=== PATIENT | male | born 1975 | race Caucasian/White ===

== ENCOUNTER 2025-04-25 11:41 | Outpatient (CLI) | payer BC, SELFPAY ==
--- NOTE | 2025-04-25 11:47 | XR_ITS ---
FINAL REPORT CLINICAL HISTORY: Abdominal pain left sided x6 months COMPARISON: None FINDINGS: A single view of the abdomen was obtained. The visualized intestinal gas pattern appears unremarkable without evidence to suggest obstruction. No abnormal radiopacities are seen in the abdomen. IMPRESSION: No acute findings. Reviewed, Interpreted and Dictated by Lena Honeycutt MD Transcribed by Phuong Ghotra Authenticated and [facility]
--- OUTSIDE RECORDS SUMMARY | 2025-04-25 11:47 | XMS_ITS | Encounter Summary ---
Author Organization [facility] Practices Address [address] [place] [address] Care Team Providers Care Cigar Packer And Sorter Name Role Phone Flynn Tian MD Primary Care Provider [phone] Encounter Details Date Type Department Care Team (Late st Contact Info) Description 12/11/2024 Telephone [facility] [address] [place] [address] Flynn Tian MD [address] [place] [address] Social History Tobacco Use Types Packs/Day Years Used Date Smoking Tobacco: Never Smokeless Tobacco: Never Alcohol Use Standard Drinks/Week Comments Never 0 (1 standard drink = 0.6 oz pur e alcohol) Core Social Determinants of Health Screening Que stions Answer Date Recorded Unable to Pay for Housing in the Last Year Not o n file 04/25/2023 [address] of Places Lived in the Last Year Not on f ile 04/25/2023 Unstable Housing in the Last Year Not on file 04/25/2023 Sex and Gender Information Value Date Recorded Sex Assigned at Not on file Legal Sex Male 7:52 PM PDT Gender Identity Not on file Sexual Orientation Not on file documented as of this encounter Plan of Treatment Not on file documented as of this encounter Visit Diagnoses Not on filedocumented in this encounter Care Teams Cigar Packer And Sorter Relationship Specialty Start Date End Date Flynn Tian MD [address] [place] [id number] PCP - General Family Medicine 04/29/21 documented as of this encounter
--- OUTSIDE RECORDS SUMMARY | 2025-04-25 11:47 | XMS_ITS | Clinical Summary ---
Author Organization [facility] and [facility] Address [address] [place] [address] Care Team Providers Care Peripheral Edp Equipment Operator Name Role Phone Flynn Tian MD Primary Care Provider [phone] Source Comments This information has been disclosed to you from records protected by Federal confidentiality rules (42 CFR part 2). The Federal rules prohibit you from making any further disclosure of this information unless further disclosure is expressly permitted by the written consent of the person to whom it pertains or as otherwise permitted by 42 CFR part 2. A general authorization for the release of medical or other information is NOT sufficient for this purpose. The Federal rules restrict any use of the information to criminally investigate or prosecute any alcohol or drug abuse patient.[facility] Allergies No known active allergies Medications escitalopram (LEXAPRO) 10mg Tab 1 tablet Active rosuvastatin (CRESTOR) 10mg Tab TAKE ONE TABLET BY MOUTH AT BEDTIME (GENERIC FOR CRESTOR) 30 Tab 3 12/21/2024 Active Active Problems Problem Noted Date Diagnosed Date Cough 07/28/2022 Acute right-sided low back pain without sciatica 03/31/2022 Anxiety 10/29/2009 Hyperlipidemia 10/16/2009 Encounters Date Type Department Care Team Description 01/24/2025 Results Follow-Up [facility] [address] [place] [phone] Flynn Tian MD COMPREHENSIVE METABOLIC PANEL W GFR, CBC WITHOUT DIFFERENTIAL, LIPID PROFILE from Last 3 Months Family History Medical History Relation Comments Hyperlipidemia Father Heart Disease Mother Relation Status Comments Father Alive Mother Alive Social History Tobacco Use Types Packs/Day Years Used Date Smoking Tobacco: Never Smokeless Tobacco: Never Tobacco Cessation:Counseling Given: Not Answered Alcohol Use Standard Drinks/Week Comments Never 0 [...] on file Sexual Orientation Not on file Last Filed Vital Signs Vital Sign Reading Time Taken Comments Blood Pressure 125/76 12/21/2024 3:31 PM PDT Pulse 77 12/21/2024 3:31 PM PDT Temperature 36.7 C (98 F) 12/21/2024 3:31 PM PDT Respiratory Rate 14 04/29/2021 5:23 PM PDT Oxygen Saturation 95% 04/29/2021 5:23 PM PDT Inhaled Oxygen Concentration - - Weight 78.6 kg (173 lb 3.2 oz) 12/21/2024 3:31 P M PDT Height 177.8 cm (5' 10 ) 12/21/2024 3:31 PM PDT Body Mass Index 24.85 12/21/2024 3:31 PM PDT Plan of Treatment Health Maintenance Due Date Last Done Comments UNIVERSAL HIV SCREENING 1995 DTaP,Tdap,or Td Vaccine (1 - Tdap) 1996 HEPATITIS B VACCINE (1 of 3 - 19+ 3-dose series) 1996 MMR VACCINE ADULT 1996 COLORECTAL CANCER SCREENING DISCUSSION 2022 COVID-19 Vaccine (4 - 2023-2 5 season) 2024 08/22/2021, 12/07/2020, 11/09/2020 INFLUENZA VACCINE 06/13/2025 08/12/2022 LIPID SCREENING 01/15/2026 01/15/2025, 08/10/2022 HEPATITIS C SCREENING Completed 08/31/2022 HEPATITIS A VACCINE Aged Out No longe r eligible based on patient's age to complete this topic HPV VACCINE (No Doses Required) Completed MENINGOCOCCAL ACWY VACCINE Aged Out N o longer eligible based on patient's age to complete this topic PNEUMOCOCCAL VACCINE 0-49 YEARS Aged Out No longer eligible b ased on patient's age to complete this topic Procedures Procedure Name Priority Date/Time Associated Diagnosis Comments LIPID PROFILE Routine 01/15/2025 7:46 AM PDT HEPATITIS ACUTE PANEL Routine 08/31/2022 8:05 AM PST Elevated LFTs from Last 3 Months or Most Recently Relevant to Health Maintenance Results * (ABNORMAL) LIPID PROFILE (01/15/2025 7:46 AM PDT) CHOLESTEROL, TOTAL 176 100 - 199 mg/dL 01/16/2025 6:11 AM PDT [facility] TRIGLYCERIDES 94 0 - 149 mg/dL 01/16/2025 5:59 AM PDT [facility] HDL CHOLESTEROL 41 >39 mg/dL 5 5:59 AM PDT [facility] VLDL Cholesterol Flavio 17 5 - 40 mg/dL 01/16/2025 6:11 AM PDT [facility] LDL Chol Calc ([facility]) 118(H) 0 - 99 mg/dL 01/16/2025 6:11 AM PDT [facility] LDL CALC COMMENT CANCELED 01/17/20 25 6:11 AM PDT [facility] Comment:Result canceled by t cyndy ancillary. 01/15/2025 7:46 AM PDT us Flynn Tian MD LAB CHEMISTRY Final Res [facility] [address] [place] [address] * HEPATITIS ACUTE PANEL (08/31/2022 8:05 AM PST) HEPATITIS A Ab IgM NON-REACTI VE NON-REACT BOO [facility] Comment: For additional information, please refer to http://[facility]/faq/RXQ749 (This link is being provided for informational/ educational purposes only.) HEPATITIS B SURFACE Ag NON-REACTI VE NON-REACT BOO [facility] HEP B CORE Ab, IgM NON-REACTI VE NON-REACT BOO [facility] HEPATITIS C Ab NON-REACTI VE NON-REACT BOO [facility] SIGNAL TO CUT-OFF 0.04 <1.00 [facility] Comment: HCV antibody was non-reactive. There is no laboratory evidence of HCV infection. In most cases, no further action is required. However, if recent HCV exposure is suspected, a test for HCV RNA (test code 33055) is suggested. For additional information please refer to http://[facility]/faq/VRN67i3 (This link is being provided for informational/ educational purposes only.) Blood 08/31/2022 8:05 AM PST 08/31/2022 8:05 AM PST Narrative [facility] - 09/01/2022 11:20 AM PST FASTING:YES FASTING: YES Dominique Varner NP LAB CHEMISTRY Final Result Performing Organization Address City/State/[facility] Co de Phone Number [facility] [address] [place] [address] [facility] [address] [place] [address] from Last 3 Months or Most Recently Relevant to Health Maintenance Insurance [facility] PPO BLUE [facility] [place] BLUE [facility] Care Teams Peripheral Edp Equipment Operator Relationship Specialty Start Date End Date Flynn Tian MD [address] [id number] PCP - General Family Medicine 04/29/21
--- OUTSIDE RECORDS SUMMARY | 2025-04-25 11:47 | XMS_ITS | Clinical Summary ---
Author Organization [facility], [facility], [facility], and Affiliates Address [address] [place] [address] Care Team Providers Care Soil And Plant Scientist Name Role Phone Jessica Galaviz MD Primary Care Provider [phone] Vesna Degroot MD Unavailable [phone] Allergies No known active allergies Medications celecoxib (CELEBREX) 200 mg capsule Take 1 capsule (200 mg total) by mouth Twice a day 6 capsule 04/28/20 21 Active HYDROcodone-ac etaminophen (NORCO) 5-325 mg tablet Take 1 tablet by mouth every 4 (four) hours as needed for Pain 5 tablet 04/28/20 21 Active ALPRAZolam (XANAX) 1 mg tablet Take 1 pill 1 hour before procedure to reduce anxiety 1 tablet 04/28/20 21 Active Additional Information Patient not taking.Reported on 02/15/2025 escitalopram oxalate (LEXAPRO) 10 mg tablet Active rosuvastatin (CRESTOR) 5 mg tablet 1 tablet (5 mg total) 06/11/20 20 Active hydrocortisone 2.5 % cream Apply topically in the morning. 10/20/19 24 Active sodium-potassi um,magnesium sulfates (SUPREP BOWEL PREP KIT) 17.5-3.13-1.6 gram liquidIndicati ons:Colon cancer screening Take 1st half at 6 PM the night before the procedure. Take the 2nd half 5-6 hours before your procedure on the morning of. Please follow [facility] colonoscopy instructions 1 kit 12/07/19 24 Active sodium-potassi um,magnesium sulfates (SUPREP BOWEL PREP KIT) 17.5-3.13-1.6 gram liquidIndicati ons:Colon cancer screening Take 1st half at 6 PM the night before the procedure. Take the 2nd half 5-6 hours before your procedure on the morning of. Please follow [facility] Gastroenterology colonoscopy instructions 1 kit 02/17/20 25 Active Active Problems Problem Noted Date Diagnosed Date Encounter for sterilization 04/27/2021 Anxiety 10/29/2009 Hyperlipidemia 10/16/2009 Cough variant asthma 05/13/2009 Encounters Date Type Department Care Team Description 04/23/2025 Results Follow-Up [facility] Encounter [address] [place] [address] Vesna Degroot MD 02/16/2025 7:30 AM PDT Video Visit [facility] Gastroenterology - A [facility] [address] [facility], [address] [place] [phone] Vesna Degroot MD Colon cancer screening (Primary Dx); Hepatic steatosis from Last 3 Months Social History Tobacco Use Types Packs/Day Years Used Date Smoking Tobacco: Never Alcohol Use Standard Drinks/Week Comments Not Currently 0 (1 standard drink = 0.6 oz pur e alcohol) Sex and Gender Information Value Date Recorded Sex Assigned at Not on file Legal Sex Male 7:32 PM PDT Gender Identity Not on file Sexual Orientation Not on file Last Filed Vital Signs Vital Sign Reading Time Taken Comments Blood Pressure - - Pulse - - Temperature - - Respiratory Rate - - Oxygen Saturation - - Inhaled Oxygen Concentration - - Weight 81.6 kg (180 lb) 02/15/2012 11:08 AM PDT Height 175.3 cm (5' 9 ) 02/15/2012 11:08 AM PDT Body Mass Index 26.58 02/15/2012 11:08 AM PDT Plan of Treatment Health Maintenance Due Date Last Done Comments Hepatitis B Routine Screening [address] Colonography 1995 HIV Routine Screening 1995 Hepatitis C Routine Screening 1995 Td Immunization 1995 Tdap Immunization 1995 Hepatitis B Vaccines (1 of 3 - 19+ 3-dose series) 1996 Pneumococcal Vaccine (0-49 y ears) (1 of 2 - PCV) 1996 Colorectal Screening FIT Annual 2022 Colorectal Screening FIT-DNA (Cologuard) 2022 Colorectal Screening Flex Sig 2022 Covid-19 Vaccine ( season) 2024 08/22/2021, 12/07/2020, 11/09/2020 Influenza Vaccines (#1) 2025 08/12/2022 Tobacco Screening 02/15/2026 02/15/2025 Zoster Vaccines (1 of 2) 2027 Colorectal Cancer Screening 04/17/2035 Colorectal Screening Colonoscopy 04/17/2035 04/17/20 25 Procedures Procedure Name Priority Date/Time Associated Diagnosis Comments COLONOSCOPY Routine 04/17/2025 9:28 AM PDT UPPER GI ENDOSCOPY Routine 04/17/2025 9: 09 AM PDT SURGICAL PATHOLOGY ([facility]) Routine 04/17/2025 12:00 AM PDT from Last 3 Months Results * Colonoscopy (04/17/2025 9:28 AM PDT) 04/17/2025 9:28 AM PDT [facility] ENDOSCOPY [facility] - 04/17/2025 9:48 AM PDT Patient: JR RODRIGUEZ : 1975 Account: [id number] Sex at : Male Age: 49 Years Procedure: Colonoscopy Date: 04/17/2025 Attending Physician: Vesna Degroot Referring MD: Jessica Galaviz MD Additional Staff: Cristel Driver; Dalila Bailey Indications: - Screening for colorectal malignant neoplasm Medications: - Propofol IV 600 mg Complications: - No immediate complications. Estimated blood loss: Minimal. Estimated Blood Loss: - Estimated blood loss was minimal. Procedure: - Prior to the procedure, a History and Physical was performed, and patient medications and allergies were reviewed. The patient's tolerance of previous anesthesia was also reviewed. The risks and benefits of the procedure and the sedation options and risks were discussed with the patient. All questions were answered, and informed consent was obtained. Prior Anticoagulants: The patient has taken no anticoagulant or antiplatelet agents. ASA Grade Assessment: II - A patient with mild systemic disease. After reviewing the risks and benefits, the patient was deemed in satisfactory condition to undergo the procedure. - Prior Aspirin/ NSAID therapy: The patient has taken no aspirin or NSAID medications. - The [id number] was introduced through the anus and advanced to the terminal ileum, with identification of the appendiceal orifice and ileocecal valve. - The scope was withdrawn and the mucosa was carefully examined. Retroflexion was performed in the rectum. - The colonoscopy was performed without difficulty. - The patient tolerated the procedure well. - The quality of the bowel preparation was good. - The terminal ileum, ileocecal valve, appendiceal orifice, and rectum were photographed. Findings: - A diminutive (1-3 mm) polyp was found in the cecum. The polyp was sessile. The polyp was removed with a cold biopsy forceps. Resection was complete, and retrieval was complete. - A diminutive (1-3 mm) polyp was found in the ascending colon. The polyp was sessile. The polyp was removed with a cold biopsy forceps. Resection was complete, and retrieval was complete. - The terminal ileum appeared normal. - A diminutive (1-3 mm) polyp was found in the sigmoid colon. The polyp was sessile. The polyp was removed with a cold biopsy forceps. Resection was complete, and retrieval was complete. - A few diverticula were found. - Internal hemorrhoids were found during retroflexion. - The exam was otherwise without abnormality on direct and retroflexion views. Impression: - One diminutive (1-3 mm) polyp in the cecum, removed with a cold biopsy forceps. Resected and retrieved. - One diminutive (1-3 mm) polyp in the ascending colon, removed with a cold biopsy forceps. Resected and retrieved. - The examined portion of the ileum was normal. - One diminutive (1-3 mm) polyp in the sigmoid colon, removed with a cold biopsy forceps. Resected and retrieved. - Diverticulosis. - Internal hemorrhoids. - The examination was otherwise normal on direct and retroflexion views. Recommendation: - Patient has a contact number available for emergencies. The signs and symptoms of potential delayed complications were discussed with the patient. Return to normal activities tomorrow. Written discharge instructions were provided to the patient. - Resume previous diet. - Continue present medications. - Await pathology results. - Repeat colonoscopy date to be determined after pending pathology results are reviewed for surveillance based on pathology results. - The patient has been assessed post procedure, they have recovered from anesthesia and they have met criteria for discharge from the center. Procedure Code(s): - 74261-11, Colonoscopy, flexible; with biopsy, single or multiple Diagnosis Code(s): - Z12.11, Encounter for screening for malignant neoplasm of colon - K63.5, Polyp of colon - K64.8, Other hemorrhoids - K57.30, Diverticulosis of large intestine without perforation or abscess without bleeding CPT(R) - 2023 copyright [employer]. All Rights Reserved. The CPT codes, CCI edits and ICD codes generated are intended as suggestions and were generated based on input data. These codes are preliminary and upon monotype keyboard operator review may be revised to meet current compliance and payer requirements. The provider is responsible for the final determination of appropriate codes, and modifiers. MD Vesna Kline This document has been electronically signed. Note Initiated:04/17/2025 Note Completed:04/17/2025 9:48 AM Vesna Degroot MD GI PROCEDURE ORDERABLES Leticia l Result ENDOSCOPY [facility] * Upper GI endoscopy (04/17/2025 9:09 AM PDT) 04/17/2025 9:09 AM PDT Impressions ENDOSCOPY [facility] - 04/17/2025 9:45 AM PDT Patient: JR RODRIGUEZ : 1975 Account: [id number] Sex at : Male Age: 49 Years Procedure: Upper GI endoscopy Date: 04/17/2025 Attending Physician: Vesna Degroot Referring MD: Jessica Galaviz MD Indications: - Abdominal pain Medications: - Propofol IV 200 mg - Propofol IV 600 mg Complications: - No immediate complications. Estimated Blood Loss: - Estimated blood loss: None. Procedure: - Prior to the procedure, a History and Physical was performed, and patient medications and allergies were reviewed. The patient's tolerance of previous anesthesia was also reviewed. The risks and benefits of the procedure and the sedation options and risks were discussed with the patient. All questions were answered, and informed consent was obtained. Prior Anticoagulants: The patient has taken no anticoagulant or antiplatelet agents. ASA Grade Assessment: II - A patient with mild systemic disease. After reviewing the risks and benefits, the patient was deemed in satisfactory condition to undergo the procedure. - Prior Aspirin/ NSAID therapy: The patient has taken no aspirin or NSAID medications. - The [id number] was introduced through the mouth and advanced to the second part of the duodenum. - The scope was withdrawn and the mucosa carefully examined. Retroflexion was performed in the stomach. - The upper GI endoscopy was accomplished without difficulty. - The patient tolerated the procedure well. Findings: - The examined esophagus was normal. - A small hiatal hernia was present. - Diffuse mildly erythematous mucosa was found in the gastric body and in the gastric antrum. Biopsies were taken with a cold forceps for histology. - The examined duodenum was normal. Biopsies were taken with a cold forceps for histology. Impression: - Normal esophagus. - Small hiatal hernia. - Erythematous mucosa in the gastric body and gastric antrum. Biopsied. - Normal examined duodenum. Biopsied. Recommendation: - The patient has been assessed post procedure, they have recovered from anesthesia and they have met criteria for discharge from the center. - Patient has a contact number available for emergencies. The signs and symptoms of potential delayed complications were discussed with the patient. Return to normal activities tomorrow. Written discharge instructions were provided to the patient. - Continue present medications. - Resume previous diet. - Await pathology results. Procedure Code(s): - 02707, Esophagogastroduodenoscopy, flexible, transoral; with biopsy, single or multiple Diagnosis Code(s): - R10.9, Unspecified abdominal pain - K44.9, Diaphragmatic hernia without obstruction or gangrene - K31.89, Other diseases of stomach and duodenum CPT(R) - 2023 copyright [employer]. All Rights Reserved. The CPT codes, CCI edits and ICD codes generated are intended as suggestions and were generated based on input data. These codes are preliminary and upon monotype keyboard operator review may be revised to meet current compliance and payer requirements. The provider is responsible for the final determination of appropriate codes, and modifiers. MD Vesna Kline This document has been electronically signed. Note Initiated:04/17/2025 Note Completed:04/17/2025 9:45 AM Vesna Degroot MD GI PROCEDURE ORDERABLES Leticia watt Result [facility] * Surgical Pathology (04/17/2025 12:00 AM PDT) 04/17/2025 04/18/2025 Impressions [facility] - 04/23/2025 10:40 AM PDT Patient Name: JR RODRIGUEZ Age-Sex-: 49y M 1975 Procedure Date: 04/17/2025 Accession Date: 04/18/2025 Pt Acct#: Report Date: 04/23/2025 Physician(s): VESNA DEGROOT MD* JESSICA GALAVIZ MD* P A T H O L O G Y R E P O R T DIAGNOSIS: 1. Duodenum, second portion biopsies: Duodenal mucosa without significant pathologic abnormality. No significant inflammation identified. Well formed villi present and no evidence for celiac sprue identified. 2. Stomach, body, antrum, biopsies: Antral and fundic type mucosa without significant pathologic abnormality. No significant inflammation or H. pylori identified. 3. Colon, ascending, polyp, polypectomy: Colonic mucosa with an intramucosal lymphoid aggregate. No polyp fish or malignancy identified. 4. Colon, cecum, polyp, polypectomy: Colonic mucosa without significant pathologic abnormality. No polyp tissue or malignancy identified. 5. Colon, sigmoid, polyp, polypectomy: Hyperplastic polyp. Caesar Souza M.D. electronically signed 04/23/2025 10:40 AM Gross Description: GROSS DESCRIPTION: Five parts are received in formalin labeled with the patient's name and date of . Part 1. Additionally labeled normal duodenum, second portion is a 0.8 cm in greatest dimension aggregate of multiple aleman, soft fragment(s) of tissue. Submitted in toto in 1A. Part 2. Additionally labeled stomach, body, antral erythema is a 0.8 cm in greatest dimension aggregate of multiple aleman, soft fragment(s) of tissue. Submitted in toto in 2A. Part 3. Additionally labeled right colon polyp 1 aleman, soft fragment(s) of tissue (0.4 cm in greatest dimension). Submitted in toto in 3A with level sections obtained. Part 4. Additionally labeled cecal polyp 3 aleman, soft fragment(s) of tissue (0.3, 0.2, 0.3 cm in greatest dimension). Submitted in toto in 4A with level sections obtained. Part 5. Additionally labeled sigmoid colon polyp 2 aleman, soft fragment(s) of tissue (0.4, 0.7 cm in greatest dimension). Submitted in toto in 5A with level sections obtained. (FK,[id number],[id number]) Clinical History: R10.9, K44.9, K31.89, Z12.11, K63.5, K64.8, K57.30 Unless specified otherwise above, the quality of the H and E and any other stains performed is satisfactory, and any internal or external positive and negative controls react appropriately. End of Report Technical services provided by [facility], [facility], d/b/a [facility], [address] [place] [address] , [place] [address] Preet Tom MD, Chilling Hood Operator. Case reviewed and diagnosis rendered at [facility], [address] [place] [id number] Abimael Hernandez Che, M.D., Chilling Hood Operator. CONFIDENTIAL us Vesna Degroot MD PATHOLOGY/CYTOLOGY ORDERABLE S Final Result [address] [address] from Last 3 Months Insurance [facility] Advance Directives Documents on File Type Date Recorded Patient Ship Pilot Expl anation Legal Document ([facility]) 03/20/2011 12:00 AM L egal Documents SCAN Care Teams Soil And Plant Scientist Relationship Specialty Start Date End Date Jessica Galaviz MD [address] [place] [address] PCP - General Family Medicine 04/28/21 Vesna Degroot MD [address] [facility] [address] [place] [address] Gastroenterology 02/09/25
--- OUTSIDE RECORDS SUMMARY | 2025-04-25 11:47 | XMS_ITS | Encounter Summary ---
Author Organization [facility] and [facility] Practices Address [address] [facility] [place] [address] Care Team Providers Care Packer Dried Beef Name Role Phone Flynn Tian MD Primary Care Provider [phone] Encounter Details Date Type Department Care Team (Late st Contact Info) Description 12/13/2024 Telephone [facility] [address] [place] [address] Flynn Tian MD [address] [place] [address] Social History Tobacco Use Types [...] on file documented as of this encounter Miscellaneous Notes * Telephone Encounter - Aysha Rivera MA - 12/13/2024 12:24 PM PDT appt [facility] for 12/21/[address] flynn tian * Telephone Encounter - Aysha Rivera MA - 12/13/2024 12:24 PM PDT ----- Message from Flynn Tian MD sent at 12/12/2024 6:47 AM PDT ----- Regarding: appt needed appt needed documented in this encounter Plan of Treatment Not on file documented as of this encounter Visit Diagnoses Not on filedocumented in this encounter Care Teams Packer Dried Beef Relationship Specialty Start Date End Date Flynn Tian MD [address] [phone] PCP - General Family Medicine 04/29/21 documented as of this encounter
--- OUTSIDE RECORDS SUMMARY | 2025-04-25 11:47 | XMS_ITS | Referral Summary ---
Author Organization [facility], [facility], [facility], and Affiliates Address [address] [place] [address] Care Team Providers Care Timber Treating Tank Operator Name Role Phone Jessica Galaviz MD Primary Care Provider [phone] Vesna Degroot MD Unavailable [phone] Encounters Date Type Department Care Team Description 04/23/2025 Results Follow-Up [facility] Encounter [address] [facility] [address] Vesna Degroot MD 02/16/2025 7:30 AM PDT Video Visit [facility] Gastroenterology - A [facility] [address] [facility], [address] [place] [address] Vesna Degroot MD Colon cancer screening (Primary Dx); Hepatic steatosis from Last 3 Months Allergies No known active allergies Medications celecoxib [...] procedure on the morning of. Please follow [facility] Gastroenterology colonoscopy instructions 1 kit 12/07/19 24 Active sodium-potassi um,magnesium sulfates (SUPREP BOWEL PREP KIT) 17.5-3.13-1.6 gram liquidIndicati ons:Colon cancer screening Take 1st half at 6 PM the night before the procedure. Take the 2nd half 5-6 hours before your procedure on the morning of. Please follow [facility] Gastroenterology colonoscopy instructions 1 kit 02/17/20 25 Active Active Problems Problem Noted Date Diagnosed Date Encounter for sterilization 04/27/2021 Anxiety 10/29/2009 Hyperlipidemia 10/16/2009 Cough variant asthma 05/13/2009 Social History Tobacco Use Types Packs/Day Years [...] 02/15/2012 11:08 AM PDT Plan of Treatment Not on file Procedures Procedure Name Priority Date/Time Associated Diagnosis Comments COLONOSCOPY Routine 04/17/2025 9:28 AM PDT UPPER GI ENDOSCOPY Routine 04/17/2025 9: 09 AM PDT SURGICAL [facility]OLOGY ([facility]) Routine 04/17/2025 12:00 AM PDT from Last 3 Months Results * Colonoscopy (04/17/2025 9:28 AM PDT) 04/17/2025 9:28 AM PDT [facility] ENDOSCOPY [facility]ENTER [facility] - 04/17/2025 9:48 AM PDT Patient: JR RODRIGUEZ : 1975 Account: [id number] Sex at : Male Age: 49 Years [...] no aspirin or NSAID medications. - The [id number] was introduced through the anus and advanced [...] discharge from the center. Procedure Code(s): - 90010-80, Colonoscopy, flexible; with biopsy, single or multiple Diagnosis Code(s): - Z12.11, Encounter for screening for malignant neoplasm of colon - K63.5, Polyp of colon - K64.8, Other hemorrhoids - K57.30, Diverticulosis of large intestine without perforation or abscess without bleeding CPT(R) - 2023 copyright [employer]. All Rights Reserved. The CPT codes, CCI edits and ICD codes generated are intended as suggestions and were generated based on input data. These codes are preliminary and upon consumer product advisor review may be revised to meet current compliance and payer requirements. The provider is responsible for the final determination of appropriate codes, and modifiers. MD Vesna Kline This document has been electronically signed. Note Initiated:04/17/2025 Note Completed:04/17/2025 9:48 AM us Vesna Degroot MD GI PROCEDURE ORDERABLES Leticia shukri Result [facility]COPY [facility] * Upper GI endoscopy (04/17/2025 9:09 AM PDT) 04/17/2025 9:09 AM PDT Impressions [facility] - 04/17/2025 9:45 AM PDT Patient: JR RODRIGUEZ : 1975 Account: [id number] Sex at : Male Age: 49 Years Procedure: Upper GI endoscopy Date: 04/17/2025 Attending Physician: Vesna Schuster MD: Jessica Galaviz MD Indications: - Abdominal [...] no aspirin or NSAID medications. - The [id number] was introduced through the mouth and advanced [...] - Await pathology results. Procedure Code(s): - 15691, Esophagogastroduodenoscopy, flexible, transoral; with biopsy, single or multiple Diagnosis Code(s): - R10.9, Unspecified abdominal pain - K44.9, Diaphragmatic hernia without obstruction or gangrene - K31.89, Other diseases of stomach and duodenum CPT(R) - 202 copyright [employer]. All Rights Reserved. The CPT codes, CCI edits and ICD codes generated are intended as suggestions and were generated based on input data. These codes are preliminary and upon consumer product advisor review may be revised to meet current compliance and payer requirements. The provider is responsible for the final determination of appropriate codes, and modifiers. MD Vesna Kline This document has been electronically signed. Note Initiated:04/17/2025 Note Completed:04/17/2025 9:45 AM Vesna Degroot MD GI PROCEDURE ORDERABLES Leticia watt Result [facility] * Surgical Pathology (04/17/2025 12:00 AM PDT) 04/17/2025 04/18/2025 Impressions [facility] PATH - 04/23/2025 10:40 AM PDT Patient [...] Report Technical services provided by [facility], d/b/a [facility], [address] [place] [address] , [place] [address] Preet Tom MD, Naval Architect. Case reviewed and diagnosis rendered at [facility], [address] [place] [id number] Abimael Hernandez Che, M.D., Naval Architect. CONFIDENTIAL us Vesna Degroot MD PATHOLOGY/CYTOLOGY ORDERABLE S Final Result [facility] [address] [place] [address] from Last 3 Months Insurance [facility] Advance Directives Documents on File Type Date Recorded Patient Data Control Clerk Expl anation Legal Document ([facility]) 03/20/2011 12:00 AM L egal Documents SCAN Care Teams Timber Treating Tank Operator Relationship Specialty Start Date End Date Jessica Galaviz MD [address] [place] [address] PCP - General Family Medicine 04/28/21 Vesna Degroot MD [address] [place], [place] [address] [place] [address] Gastroenterology 02/09/25
--- OUTSIDE RECORDS SUMMARY | 2025-04-25 11:47 | XMS_ITS | Encounter Summary ---
Author Organization [facility], [facility], [facility], and Affiliates Address [address] [place] [address] Care Team Providers Care Athletic Director Name Role Phone Flynn Tian MD Primary Care Provider [phone] Vesna Degroot MD Unavailable Encounter Details Date Type Department Care Team (Late st Contact Info) Description 04/23/2025 Results Follow-Up [facility] Encounter [address] [place] [address] Vesna Degroot MD [address] [place], [place] [address] [place], [place] [id number] Social History Tobacco Use Types Packs/Day Years [...] on filedocumented in this encounter Care Teams Athletic Director Relationship Specialty Start Date End Date Flynn Tian MD [address] [facility] [address] P[facility] - General Family Medicine 04/28/21 Vesna Degroot MD [address] [place], [place] [address] [place] [address] Gastroenterology 02/09/25 documented as of this encounter
== END 2025-04-25 23:59 | disposition home or self-care (01) ==
LOC: RAD 11:45
PROVIDERS: Visit Provider Internal Medicine Gastroenterology
DX: R10.9 Unspecified abdominal pain (principal)
CPT/HCPCS: 74018